=== PATIENT | female | born 1995 | race American Indian/Alaskan Native ===

== ENCOUNTER 2017-05-11 13:15 | Emergency (ER) | payer SELFPAY ==
[2017-05-11] MEDS ORDERED: MOTRIN PO ONE (19:47)
--- NOTE | 2017-05-11 20:26 | Emergency Department Report ---
Upper Respiratory HPI - HPI Chief Complaint: Upper Respiratory Infection Stated Complaint: FLU SYMPTOMS Time Seen by Provider: 05/11/17 19:37 Duration: 3 Days URI Symptoms: Rhinorrhea: Yes, Sore Throat: Yes, Ear Pain: Yes, Cough: Yes, Shortness of Breath: No, Sick Contacts: No, Unable to Take Fluids: No, Urine Output Abnormal: No, Listless Behavior: No - Home Meds and Allergies Home Medications: Previous Rx's Medication Instructions Recorded Last Taken Type ALBUTEROL Inhaler [ProAir HFA 2 puff IH QID PRN #1 inhalation 05/11/17 Unknown Rx Inhaler] Acetaminophen [Acetaminophen 8 650 mg PO QID PRN #60 tablet.er 05/11/17 Unknown Rx Hour] Azithromycin [Zithromax Z-ADAM] 250 mg PO DAILY #6 tablet 05/11/17 Unknown Rx guaiFENesin [Robitussin] 200 mg PO Q4HR #1 bottle 05/11/17 Unknown Rx Allergies/Adverse Reactions: Allergies Allergy/AdvReac Type Severity Reaction Status Date / Time No Known Allergies Allergy Unverified 05/11/17 14:29 ED Review of Systems ROS: Stated complaint: FLU SYMPTOMS Other details as noted in HPI Constitutional: chills, fever, malaise Eyes: denies: eye pain, eye discharge, vision change ENT: ear pain, throat pain, congestion Respiratory: cough, wheezing Cardiovascular: denies: chest pain, palpitations Endocrine: no symptoms reported Gastrointestinal: nausea, vomiting. denies: diarrhea, constipation, hematemesis , melena, hematochezia Genitourinary: denies: urgency, dysuria, discharge Musculoskeletal: myalgia Skin: denies: rash, lesions Psychiatric: denies: anxiety, depression Hematological/Lymphatic: denies: easy bleeding, easy bruising ED Past Medical Hx - Past Medical History Hx Asthma: Yes (Self Diagnosed) - Surgical History Past Surgical History?: No - Social History Smoking Status: Never Smoker Substance Use Type: None - Medications Home Medications: Home Medications Medication Instructions Recorded Confirmed Last Taken Type ALBUTEROL Inhaler [ProAir HFA 2 puff IH QID PRN #1 inhalation 05/11/17 Unknown Rx Inhaler] Acetaminophen [Acetaminophen 8 650 mg PO QID PRN #60 tablet.er 05/11/17 Unknown Rx Hour] Azithromycin [Zithromax Z-ADAM] 250 mg PO DAILY #6 tablet 05/11/17 Unknown Rx guaiFENesin [Robitussin] 200 mg PO Q4HR #1 bottle 05/11/17 Unknown Rx ED Bronchiolitis Physical Exam - Exam General: Vital signs noted. No distress. Alert and acting appropriately. HEENT: Yes Pharyngeal Erythema, Yes Rhinorrhea, No Conjuctival Injection, No Dry Mucous Membranes Ear: Right TM Erythema, Neither TM Bulge, Neither EAC Discharge Neck: Yes Adenopathy, No Rigidity Lungs: Yes Wheezes (left upper lobes ), Yes Cough (productive yellow thick ) Heart: Yes Regular, No Murmur Abdomen: Yes Normal Bowel Sounds, No Tenderness, No Peritoneal Signs Skin: No Rash, No Eczema Neurologic: Alert and oriented, no deficits. Musculoskeletal: Unremarkable. ED Physical Exam - General Limitations: No Limitations General appearance: alert, in no apparent distress - Head Head exam: Present: atraumatic - Eye Eye exam: Present: normal appearance, PERRL, EOMI Pupils: Present: normal accommodation - ENT ENT exam: Present: mucous membranes moist - Expanded ENT Exam Expanded TM/Canal exam: Erythema: Right TM, Canal Tenderness: Right TM Mouth exam: Present: tongue normal. Absent: trismus, tongue elevation Throat exam: Positive: tonsillar erythema. Negative: tonsillomegaly, tonsillar exudate - Neck Neck exam: Present: normal inspection, full ROM. Absent: tenderness, lymphadenopathy, thyromegaly - Respiratory Respiratory exam: Present: normal lung sounds bilaterally, wheezes (mild exp ). Absent: respiratory distress, stridor, chest wall tenderness - Cardiovascular Cardiovascular Exam: Present: tachycardia (mild tachycardia 102), normal heart sounds - GI/Abdominal GI/Abdominal exam: Present: soft, normal bowel sounds. Absent: distended, tenderness, guarding, rebound, rigid, organomegaly, mass, bruit, hernia - Rectal Rectal exam: Present: deferred - Extremities Exam Extremities exam: Present: normal inspection - Back Exam Back exam: Present: normal inspection - Neurological Exam Neurological exam: Present: alert, oriented X3 - Psychiatric Psychiatric exam: Present: normal affect, normal mood - Skin Skin exam: Present: warm, dry, intact, normal color. Absent: rash ED Course Vital Signs 05/11/17 14:25 Temperature 99.6 F Pulse Rate 102 H Respiratory 22 Rate Blood Pressure 118/76 O2 Sat by Pulse 100 Oximetry ED Medical Decision Making - Lab Data Result diagrams: 05/11/17 19:55 05/11/17 19:55 - Medical Decision Making pt is a 22 y/o aaf with nmh who present for cough fever chills malaise and noc wheezing x 3 days cough productive yellow thick , fever 101 f oral subjective prior to arrival, pt endorse intermittent nausea and vomiting x 1 episode result mucus clear thick, pt denies dizziness no syncope LMP 12/20/2016, s/p 04/15/2017 follow up with [facility] [employer] no complications with same, there is no abdominal pain no vaginal bleeding no vaginal discharge or pain , exam: TMs right erythema , nose: bilat turbinater erythema clear post nasal drip, pharnx: milder erythema no lesion no exudate no tonislar abscess no stridor lungs: mild exp wheezes bilat upper lobes, labs noted pos: hcg as per date this normal finding, pt has follow up with bobtailer, will see again in 1 week , wbc: 12.1, cmp: note, cxr: no opacities no infiltrates , pt for nS 1liter and ibuprofen 800 mg po x 1 ed pt advises symptoms are now improved , tolerating po intake, plan: tx for bronchitis : azithromycin, robitussin, tylenol, albuterol inhaler prn, pt will follow up with pcp as directed pt verbalized agreement and understanding with discharge plan. Critical care attestation.: If time is entered above; I have spent that time in minutes in the direct care of this critically ill patient, excluding procedure time. ED Disposition Clinical Impression: Bronchitis Disposition: DC-01 TO HOME OR SELFCARE Is pt being admited?: No Does the pt Need Aspirin: No Condition: Good Instructions: Chronic Bronchitis (ED) Prescriptions: Acetaminophen [Acetaminophen 8 Hour] 650 mg PO QID PRN #60 tablet.er PRN Reason: pain / fever ALBUTEROL Inhaler [ProAir HFA Inhaler] 2 puff IH QID PRN #1 inhalation PRN Reason: Shortness Of Breath Azithromycin [Zithromax Z-ADAM] 250 mg PO DAILY #6 tablet guaiFENesin [Robitussin] 200 mg PO Q4HR #1 bottle Referrals: PRIMARY CARE, [Primary Care Provider] - 3-5 Days Forms: Work/School Release Form(ED) Time of Disposition: 21:35
[2017-05-11 20:37] LABS: Basophils % (Auto) 0.5 % (0.0-1.8); Eosinophils % (Auto) 0.2 % (0.0-4.3); Hematocrit 37.1 % (30.3-42.9); Hemoglobin 11.8 gm/dl (10.1-14.3); Mean Corpuscular HGB Conc 32 % (30-34); Mean Corpuscular Hemoglobin 26 pg (28-32); Mean Corpuscular Volume 82 fl (79-97); Platelet Count 196 K/mm3 (140-440); Red Blood Count 4.53 M/mm3 (3.65-5.03); Red Cell Distribution Width 15.4 % (13.2-15.2); White Blood Count 12.2 K/mm3 (4.5-11.0)
[2017-05-11 20:45] LABS: Alanine Aminotransferase 9 units/L (7-56); Albumin 3.9 g/dL (3.9-5); Albumin/Globulin Ratio 1.3 %; Alkaline Phosphatase 52 units/L (35-129); Anion Gap 22 mmol/L; BUN/Creatinine Ratio 8.57; Blood Urea Nitrogen 6 mg/dL (7-17); Calcium 8.9 mg/dL (8.4-10.2); Carbon Dioxide 19 mmol/L (22-30); Chloride 95.6 mmol/L (98-107); Glucose 100 mg/dL (65-100); Potassium 3.3 mmol/L (3.6-5.0); Sodium 133 mmol/L (137-145)
[2017-05-11 21:14] LABS: Bacteria,Urine 2+ /HPF (Negative); Bilirubin,Urine NEG (Negative); Blood,Urine SM (Negative); Ketones,Urine 20 mg/dL (Negative); Leukocyte Esterase,Urine LG (Negative); Mucus,Urine FEW /HPF; Nitrite,Urine NEG (Negative)
[2017-05-11 21:51] VITALS: BP 131/61
--- NOTE | 2017-05-12 09:38 | XRay Report ---
ROUTINE CHEST, TWO VIEWS: HISTORY: Cough, fever. The trachea, heart, mediastinal contour, lung bernal and bony thorax are unremarkable. IMPRESSION: Unremarkable chest x-ray.
== END 2017-05-11 21:50 | disposition home or self-care (01) ==
LOC: ED 13:15
DX: J40 Bronchitis, not specified as acute or chronic (principal); J45.909 Unspecified asthma, uncomplicated
CPT/HCPCS: 36415; 71020; 80053; 81001; 81025; 85025

== ENCOUNTER 2018-02-17 16:39 | Emergency (ER) | payer SELFPAY ==
[2018-02-17 16:48] VITALS: BP 137/88
--- NOTE | 2018-02-17 17:31 | Emergency Department Report ---
HPI - General Chief Complaint: Extremity Injury, Lower Time Seen by Provider: 02/17/18 16:58 - HPI HPI: 23-year-old female presents to the emergency department with a complaint of left great toe pain and some pain to the foot around the great toe that has been going on for the past 3-4 weeks since the patient dropped a box full of cans onto her foot. She is able to ambulate and bear weight but has some pain with doing so. She has tried some [id number] medications for her discomfort without much relief. She denies any past medical history. She has not seen a primary care physician or oncology admin for her symptoms prior to presentation. ED Past Medical Hx - Past Medical History Hx Asthma: Yes (Self Diagnosed) - Social History Smoking Status: Never Smoker Substance Use Type: None - Medications Home Medications: Home Medications Medication Instructions Recorded Confirmed Last Taken Type ALBUTEROL Inhaler [ProAir HFA 2 puff IH QID PRN #1 inhalation 05/11/17 Unknown Rx Inhaler] Acetaminophen [Acetaminophen 8 650 mg PO QID PRN #60 tablet.er 05/11/17 Unknown Rx Hour] Azithromycin [Zithromax Z-ADAM] 250 mg PO DAILY #6 tablet 05/11/17 Unknown Rx guaiFENesin [Robitussin] 200 mg PO Q4HR #1 bottle 05/11/17 Unknown Rx traMADol [Ultram 50 MG tab] 50 mg PO Q8H PRN #8 tablet 02/17/18 Unknown Rx ED Review of Systems ROS: Stated complaint: LEFT FOOT PAIN Other details as noted in HPI Comment: All other systems reviewed and negative Constitutional: denies: chills, fever Eyes: denies: eye pain, eye discharge, vision change ENT: denies: ear pain, throat pain Respiratory: denies: cough, shortness of breath, wheezing Cardiovascular: denies: chest pain, palpitations Gastrointestinal: denies: abdominal pain, nausea, diarrhea Genitourinary: denies: urgency, dysuria, discharge Musculoskeletal: arthralgia. denies: back pain Skin: denies: rash, lesions Neurological: denies: headache, weakness, paresthesias Physical Exam - Physical Exam Vital Signs: Vital Signs 02/17/18 16:44 Temperature 98.3 F Pulse Rate 71 Respiratory 18 Rate Blood Pressure 137/88 O2 Sat by Pulse 100 Oximetry Physical Exam: GENERAL: The patient is well-developed well-nourished. HENT: Normocephalic. Atraumatic. Patient has moist mucous membranes. EYES: Extraocular motions are intact. NECK: Supple. Trachea is midline. CHEST/LUNGS: Clear to auscultation. There is no respiratory distress noted. HEART/CARDIOVASCULAR: Regular. There is no tachycardia. There is no murmur. ABDOMEN: There is no abdominal distention. SKIN: Skin is warm and dry. NEURO: The patient is awake, alert, and oriented. The patient is cooperative. The patient has no focal neurologic deficits. The patient has normal speech. MUSCULOSKELETAL: Mild tenderness to palpation to the base of the left great toe. There is no evidence of acute injury. Cap refill less than 2 seconds and dorsalis pedis pulses +2 over 4 to the affected left foot. ED Course Vital Signs 02/17/18 16:44 Temperature 98.3 F Pulse Rate 71 Respiratory 18 Rate Blood Pressure 137/88 O2 Sat by Pulse 100 Oximetry ED Medical Decision Making - Radiology Data Radiology results: image reviewed interpreted by me: X-ray of the left foot does not show any obvious fracture, dislocation or any other acute process. - Medical Decision Making Patient has left toe and foot pain about 2-3 weeks after dropping a box on her foot. X-ray does not show any fracture, dislocation or any acute process. On physical exam she is neurovascularly intact without any obvious deformity or signs of trauma at this point. She was seen ambulatory without any instability. She was given a small amount of pain medication and a referral for podiatry. She was encouraged to return to the emergency Department with any worsening of her symptoms or any acute distress. - Differential Diagnosis fracture, contusion, sprain, strain Critical Care Time: No Critical care attestation.: If time is entered above; I have spent that time in minutes in the direct care of this critically ill patient, excluding procedure time. ED Disposition Clinical Impression: Left foot pain Disposition: DC-01 TO HOME OR SELFCARE Is pt being admited?: No Condition: Stable Instructions: Arthralgia (ED) Additional Instructions: Please follow up with a oncology admin or orthopedist in the next few days. Return to the emergency Department with any worsening of your symptoms or any acute distress. You have been prescribed a medication that is sedating and therefore should not be taken prior to driving, working, and responsible for children and in no way should be mixed with alcohol of any quantity. Prescriptions: traMADol [Ultram 50 MG tab] 50 mg PO Q8H PRN #8 tablet PRN Reason: Pain Referrals: SARI PICKERING MD [Staff Physician] - 3-5 Days MAMIE EDEN DPM [Staff Physician] - 3-5 Days Time of Disposition: 17:56
--- NOTE | 2018-02-18 14:31 | XRay Report ---
FINAL REPORT PROCEDURE: Left foot. TECHNIQUE: AP and lateral views. HISTORY: Pain, bruising. COMPARISON: No prior studies are available for comparison. FINDINGS: The bones appear intact without fracture or dislocation. The joint spaces appear normal. The soft tissues are unremarkable. IMPRESSION: Normal study.
== END 2018-02-17 18:01 | disposition home or self-care (01) ==
LOC: ED 16:39
DX: M79.672 Pain in left foot (principal); J45.909 Unspecified asthma, uncomplicated; Z91.09 Other allergy status, other than to drugs and biological substances
CPT/HCPCS: 99283

== ENCOUNTER 2018-03-03 10:36 | Emergency (ER) | payer SELFPAY ==
[2018-03-03 10:42] VITALS: BP 123/46
[2018-03-03] MEDS ORDERED: MOTRIN PO ONE (11:12)
[2018-03-03] MEDS ORDERED: BOOSTRIX IM ONE (11:12)
--- NOTE | 2018-03-03 11:49 | Emergency Department Report ---
ED Laceration HPI - HPI Chief Complaint: Wound/Laceration Stated Complaint: CUT ON RIGHT TOE Time Seen by Provider: 03/03/18 11:12 Occurred When: Yesterday Location: Lower Extremity Severity: mild Tetanus Status: Not up to Date Laceration Symptoms: Yes Pain, No Foreign Body Sensation, No Numbness, No Weakness Other History: Patient is a 23-year-old female nontoxic, well nourished in appearance, no acute signs of distress presents to the ED with c/o of right great toe abrasion. Patient stated that she was walking down briskly with flip- flops and tripped and caused laceration against the escalator.. Patient denies any direct trauma. Patient denies any fever, chills, nausea, vomiting, chest pain, short of breath, headache, numbness or tingling. Patient states she is not up-to-date with tetanus. Patient stated this occurred around 10 PM last night. Patient denies any drug allergies or significant past medical history. ED Review of Systems ROS: Stated complaint: CUT ON RIGHT TOE Other details as noted in HPI Constitutional: denies: chills, fever Eyes: denies: eye pain, eye discharge, vision change ENT: denies: ear pain, throat pain Respiratory: denies: cough, shortness of breath, wheezing Cardiovascular: denies: chest pain, palpitations Endocrine: no symptoms reported Gastrointestinal: denies: abdominal pain, nausea, diarrhea Genitourinary: denies: urgency, dysuria, discharge Musculoskeletal: denies: back pain, joint swelling, arthralgia Skin: denies: rash, lesions Neurological: denies: headache, weakness, paresthesias Psychiatric: denies: anxiety, depression Hematological/Lymphatic: denies: easy bleeding, easy bruising ED Past Medical Hx - Past Medical History Hx Asthma: Yes (Self Diagnosed) - Surgical History Past Surgical History?: No - Social History Smoking Status: Never Smoker Substance Use Type: None - Medications Home Medications: Home Medications Medication Instructions Recorded Confirmed Last Taken Type ALBUTEROL Inhaler [ProAir HFA 2 puff IH QID PRN #1 inhalation 05/11/17 Unknown Rx Inhaler] Acetaminophen [Acetaminophen 8 650 mg PO QID PRN #60 tablet.er 05/11/17 Unknown Rx Hour] Azithromycin [Zithromax Z-ADAM] 250 mg PO DAILY #6 tablet 05/11/17 Unknown Rx guaiFENesin [Robitussin] 200 mg PO Q4HR #1 bottle 05/11/17 Unknown Rx traMADol [Ultram 50 MG tab] 50 mg PO Q8H PRN #8 tablet 02/17/18 Unknown Rx Ibuprofen [Motrin] 600 mg PO Q8H PRN #30 tablet 03/03/18 Unknown Rx Sulfamethoxazole/Trimethoprim 1 each PO BID #14 tablet 03/03/18 Unknown Rx [Bactrim DS TAB] Laceration Physical Exam - Exam General: Vital signs noted. No distress. Alert and acting appropriately. GENERAL: The patient is a well-developed, well-nourished in no apparent distress. Patient is alert and acting appropriately for age. Alert and oriented 3, no apparent distress, normal gait, atraumatic. HEENT: Head is normocephalic and atraumatic. PERRL, Extraocular muscles are intact. Pupils are equal, round, and reactive to light and accommodation. Nares appeared normal. Mouth is well hydrated and without lesions. Mucous membranes are moist. Posterior pharynx clear of any exudate or lesions. Mouth is well hydrated and without lesions. Tonsils not erythematous or swollen. Uvula midline. Tongue elevated. Mucous members are moist. Posterior pharynx clear, no exudate or lesions. Patent airways. NECK: Supple. No carotid bruits. No lymphadenopathy or thyromegaly.nontender. No meningitic signs are noted. LUNGS: Clear to auscultation. Non labor breathing. No intercostal retractions. Symmetrical with respiration, no wheezing, no rales, or crackles. HEART: Regular rate and rhythm without murmur, rubs or gallops. No reproducible. S1, S2 present, regular rate and rhythm without murmur, no rubs, no gallops. ABDOMEN: Soft, nontender, and nondistended. Positive bowel sounds. No hepatosplenomegaly was noted. No guarding or rebound tenderness, negative epigastric bruit. Negative psoas sign, negative tyler sign, negative McBurneys sign EXTREMITIES: Without any cyanosis, clubbing, rash, lesions or edema. Peripheral pulses intact. Capillary refill less than 2 seconds. Full range of motion bilaterally. NEUROLOGIC: Cranial nerves II through XII are grossly intact. Alert and oriented x 3. Normal gait. Symmetrical strength and sensation. Reflexes 2+ throughout. Cerebellar testing normal. GCS score of 15. PSYCHIATRIC: Normal affect with no suicidal or homicidal ideations. Skin: One centimeter abrasion to right great toe. The laceration. No swelling. No muscle drainage. Normal range of motion. Neurovascular intact. Laceration Location: Upper Extremity Laceration Exam: Yes Normal Distal CMS, No Foreign Body, No Exposed Tendon, Vessel, or Nerve, No Tendon Injury ED Course Vital Signs 03/03/18 10:38 Temperature 97.7 F Pulse Rate 68 Respiratory 16 Rate Blood Pressure 123/46 O2 Sat by Pulse 100 Oximetry - Reevaluation(s) Reevaluation #1: 03/03/18 11:47 Patient is speaking in full sentences with no signs of distress noted. ED Medical Decision Making - Medical Decision Making This is a 23-year-old female that presents with an abrasion. Patient stable was examined by me. Patient did receive a tetanus booster in the ED. There has been cleaned with soap and water. A sterile dressing has been applied. Patient is discharged with Bactrim. She was instructed to Follow-up with a primary care doctor in 3-5 days or if symptoms worsen and continue return to emergency room as soon as possible. At time of discharge, the patient does not seem toxic or ill in appearance. No acute signs of distress noted. Patient agrees to discharge treatment plan of care. No further questions noted by the patient. Critical care attestation.: If time is entered above; I have spent that time in minutes in the direct care of this critically ill patient, excluding procedure time. ED Disposition Clinical Impression: Abrasion Disposition: DC-01 TO HOME OR SELFCARE Is pt being admited?: No Does the pt Need Aspirin: No Condition: Stable Instructions: Abrasion (ED), Sulfamethoxazole/Trimethoprim (By mouth), Ibuprofen (By mouth) Additional Instructions: Follow-up with a primary care doctor in 3-5 days or if symptoms worsen and continue return to emergency room as soon as possible. Prescriptions: Ibuprofen [Motrin] 600 mg PO Q8H PRN #30 tablet PRN Reason: Pain Sulfamethoxazole/Trimethoprim [Bactrim DS TAB] 1 each PO BID #14 tablet Referrals: PRIMARY CARE, [Primary Care Provider] - 3-5 Days ISAÍAS JEAN-BAPTISTE MD [Staff Physician] - 3-5 Days [facility] [Outside] - 3-5 Days [facility] [Outside] - 3-5 Days Forms: Work/School Release Form(ED)
== END 2018-03-03 12:07 | disposition home or self-care (01) ==
LOC: ED 10:36
DX: S90.411A Abrasion, right great toe, initial encounter (principal); J45.909 Unspecified asthma, uncomplicated; Z91.048 Other nonmedicinal substance allergy status; W22.8XXA Striking against or struck by other objects, initial encounter; Y93.01 Activity, walking, marching and hiking; Y92.89 Other specified places as the place of occurrence of the external cause; Y99.8 Other external cause status
CPT/HCPCS: 90471; 90715

== ENCOUNTER 2018-03-04 22:35 | Emergency (ER) | payer SELFPAY ==
[2018-03-04 22:45] VITALS: BP 123/75
== END 2018-03-05 01:50 | disposition left against medical advice (07) ==
LOC: ED 22:35
DX: M79.676 Pain in unspecified toe(s) (principal); Z53.21 Procedure and treatment not carried out due to patient leaving prior to being seen by health care provider

== ENCOUNTER 2020-08-03 16:36 | Emergency (ER) | payer SELFPAY ==
[2020-08-03 16:54] VITALS: BP 125/87
--- NOTE | 2020-08-03 16:55 | Event Note ---
ED Screening Note Date of service: 08/03/20 Time: 16:54 ED Screening Note: Patient is 7 weeks and complains of vaginal bleeding and intermittent cramping pain Not currently following with an [employer] per patient This initial assessment/diagnostic orders/clinical plan/treatment(s) is/are subject to change based on patients health status, clinical progression and re- assessment by fellow clinical providers in the ED. Further treatment and workup at subsequent clinical providers discretion. Patient/guardian urged not to elope from the ED as their condition may be serious if not clinically assessed and managed. Initial orders include: Labs Ultrasound
[2020-08-03 17:40] LABS: Basophils # (Auto) 0.1 K/mm3 (0.0-0.1); Eosinophils # (Auto) 0.1 K/mm3 (0.0-0.4); Eosinophils % (Auto) 0.5 % (0.0-4.3); Hematocrit 35.2 % (30.3-42.9); Hemoglobin 12.2 gm/dl (10.1-14.3); Lymphocytes # (Auto) 1.9 K/mm3 (1.2-5.4); Lymphocytes % (Auto) 19.2 % (13.4-35.0); Mean Corpuscular HGB Conc 35 % (30-34); Mean Corpuscular Volume 92 fl (79-97); Monocytes % (Auto) 10.6 % (0.0-7.3); Platelet Count 270 K/mm3 (140-440); Red Blood Count 3.85 M/mm3 (3.65-5.03); Red Cell Distribution Width 13.9 % (13.2-15.2)
[2020-08-03 18:01] LABS: Bacteria,Urine 1+ /HPF (Negative); Bilirubin,Urine NEG (Negative); Blood,Urine SM (Negative); Color,Urine Yellow (Yellow); Mucus,Urine 3+ /HPF
[2020-08-03 18:03] LABS: Alanine Aminotransferase 35 units/L (7-56); Albumin 4.3 g/dL (3.9-5); Blood Urea Nitrogen 7 mg/dL (7-17); Calcium 9.4 mg/dL (8.4-10.2); Hemolysis Index 0
[2020-08-03 18:29] LABS: BUN/Creatinine Ratio 12
--- NOTE | 2020-08-03 18:47 | Ultrasound Report ---
US OB <= 14 weeks fetus INDICATION / CLINICAL INFORMATION: Vaginal bleeding. COMPARISON: None available. FINDINGS: Intrauterine is present of approximately 8 weeks 1 day gestational age. Gestational sac yolette meter is 36 mm and crown-rump length is 12 mm. heart rate is 166. Both ovaries are present. A 1 .7 cm complex cyst is seen in the right ovary. The left ovary is heterogeneous in appearance. IMPRESSION: Single live fetus of approximately 8 weeks 1 day gestational age in the uterus with a heart rat e of 166. A 1.7 cm complex cyst is seen in the right ovary in the left ovary is heterogeneous in appe arance Signer Name: Ben Badillo MD FACR Signed: 08/03/2020 6:46 PM Workstation Name: [id number]
--- NOTE | 2020-08-03 19:03 | Emergency Department Report ---
ED HPI - General Chief complaint: Vaginal Bleeding Stated complaint: 7 WEEKS PREG/BLEEDING Time Seen by Provider: 08/03/20 16:53 Source: patient Mode of arrival: Ambulatory Limitations: No Limitations - History of Present Illness Initial comments: Patient is 7 weeks and complains of vaginal bleeding and intermittent cramping pain x today. She denies currently following with an HEDIS COORDINATOR. She also denies any dysuria/hematuria, vaginal discharge, nausea/vomiting/diarrhea, or fever/chills/sweats. No current abdominal pain per patient. - Related Data Previous Rx's Medication Instructions Recorded Last Taken Type Acetaminophen [Acetaminophen 8 650 mg PO QID PRN #60 tablet.er 05/11/17 Unknown Rx Hour] Albuterol Mdi (or & Nicu Only) 2 puff IH QID PRN #1 inhalation 05/11/17 Unknown Rx [ProAir HFA Inhaler] Azithromycin [Zithromax Z-ADAM] 250 mg PO DAILY #6 tablet 05/11/17 Unknown Rx guaiFENesin [Robitussin] 200 mg PO Q4HR #1 bottle 05/11/17 Unknown Rx traMADoL [Ultram 50 MG tab] 50 mg PO Q8H PRN #8 tablet 02/17/18 Unknown Rx Ibuprofen [Motrin] 600 mg PO Q8H PRN #30 tablet 03/03/18 Unknown Rx Sulfamethoxazole/Trimethoprim 1 each PO BID #14 tablet 03/03/18 Unknown Rx [Bactrim DS TAB] Allergies Allergy/AdvReac Type Severity Reaction Status Date / Time nickel Allergy Unknown Verified 02/17/18 16:44 ED Review of Systems ROS: Stated complaint: 7 WEEKS PREG/BLEEDING Other details as noted in HPI Constitutional: denies: chills, diaphoresis, fever, malaise, weakness Respiratory: denies: cough, shortness of breath Cardiovascular: denies: chest pain Endocrine: denies: excessive sweating Gastrointestinal: denies: nausea, vomiting, diarrhea Genitourinary: denies: urgency, dysuria, frequency Musculoskeletal: denies: back pain Hematological/Lymphatic: denies: easy bleeding, easy bruising ED Past Medical Hx - Past Medical History Hx Asthma: Yes (Self Diagnosed) - Social History Smoking Status: Unknown if ever smoked Substance Use Type: None - Medications Home Medications: Home Medications Medication Instructions Recorded Confirmed Last Taken Type Acetaminophen [Acetaminophen 8 650 mg PO QID PRN #60 tablet.er 05/11/17 Unknown Rx Hour] Albuterol Mdi (or & Nicu Only) 2 puff IH QID PRN #1 inhalation 05/11/17 Unknown Rx [ProAir HFA Inhaler] Azithromycin [Zithromax Z-ADAM] 250 mg PO DAILY #6 tablet 05/11/17 Unknown Rx guaiFENesin [Robitussin] 200 mg PO Q4HR #1 bottle 05/11/17 Unknown Rx traMADoL [Ultram 50 MG tab] 50 mg PO Q8H PRN #8 tablet 02/17/18 Unknown Rx Ibuprofen [Motrin] 600 mg PO Q8H PRN #30 tablet 03/03/18 Unknown Rx Sulfamethoxazole/Trimethoprim 1 each PO BID #14 tablet 03/03/18 Unknown Rx [Bactrim DS TAB] ED Physical Exam - General Limitations: No Limitations General appearance: alert, in no apparent distress - Head Head exam: Present: atraumatic, normocephalic - Eye Eye exam: Present: normal appearance. Absent: scleral icterus - Respiratory Respiratory exam: Absent: respiratory distress - Cardiovascular Cardiovascular Exam: Present: regular rate - GI/Abdominal GI/Abdominal exam: Present: soft, normal bowel sounds. Absent: distended, te nderness, guarding, rebound, rigid - Back Exam Back exam: Present: full ROM - Neurological Exam Neurological exam: Present: alert, oriented X3 - Psychiatric Psychiatric exam: Present: normal affect, normal mood - Skin Skin exam: Present: warm, dry, intact, normal color. Absent: rash ED Course Vital Signs 08/03/20 16:53 Temperature 98.0 F Pulse Rate 73 Respiratory 16 Rate Blood Pressure 125/87 [Right] O2 Sat by Pulse 98 Oximetry ED Medical Decision Making - Lab Data Result diagrams: 08/03/20 16:57 08/03/20 16:57 Lab Results 08/03/20 08/03/20 08/03/20 Range/Units 16:57 16:57 16:57 WBC 9.7 (4.5-11.0) K/mm3 RBC 3.85 (3.65-5.03) M/mm3 Hgb 12.2 (10.1-14.3) gm/dl Hct 35.2 (30.3-42.9) % MCV 92 (79-97) fl MCH 32 (28-32) pg MCHC 35 H (30-34) % RDW 13.9 (13.2-15.2) % Plt Count 270 (140-440) K/mm3 Lymph % (Auto) 19.2 (13.4-35.0) % [place] % (Auto) 10.6 H (0.0-7.3) % Eos % (Auto) 0.5 (0.0-4.3) % Baso % (Auto) 1.0 (0.0-1.8) % Lymph # (Auto) 1.9 (1.2-5.4) K/mm3 [place] # (Auto) 1.0 H (0.0-0.8) K/mm3 Eos # (Auto) 0.1 (0.0-0.4) K/mm3 Baso # (Auto) 0.1 (0.0-0.1) K/mm3 Seg Neutrophils % 68.7 (40.0-70.0) % Seg Neutrophils # 6.6 (1.8-7.7) K/mm3 Sodium 134 L (137-145) mmol/L Potassium 3.0 L (3.6-5.0) mmol/L Chloride 98.7 (98-107) mmol/L Carbon Dioxide 24 (22-30) mmol/L Anion Gap 14 mmol/L BUN 7 (7-17) mg/dL Creatinine 0.6 (0.6-1.2) mg/dL Estimated GFR > 60 ml/min BUN/Creatinine Ratio 12 % Glucose 100 (65-100) mg/dL Calcium 9.4 (8.4-10.2) mg/dL Total Bilirubin 0.40 (0.1-1.2) mg/dL AST 24 (5-40) units/L ALT 35 (7-56) units/L Alkaline Phosphatase 42 (35-129) units/L Total Protein 7.3 (6.3-8.2) g/dL Albumin 4.3 (3.9-5) g/dL Albumin/Globulin Ratio 1.4 % HCG, Quant [id number] H (0-4) mIU/mL Urine Color (Yellow) Urine Turbidity (Clear) Urine pH (5.0-7.0) Ur Specific [place] (1.003-1.030) Urine Protein (Negative) mg/dL Urine Glucose (UA) (Negative) mg/dL Urine Ketones (Negative) mg/dL Urine Blood (Negative) Urine Nitrite (Negative) Urine Bilirubin (Negative) Urine Urobilinogen (<2.0) mg/dL Ur Leukocyte Esterase (Negative) Urine WBC (Auto) (0.0-6.0) /HPF Urine RBC (Auto) (0.0-6.0) /HPF U Epithel Cells (Auto) (0-13.0) /HPF Urine Bacteria (Auto) (Negative) /HPF Urine Mucus /HPF Blood Type 08/03/20 08/03/20 Range/Units 16:57 17:38 WBC (4.5-11.0) K/mm3 RBC (3.65-5.03) M/mm3 Hgb (10.1-14.3) gm/dl Hct (30.3-42.9) % MCV (79-97) fl MCH (28-32) pg MCHC (30-34) % RDW (13.2-15.2) % Plt Count (140-440) K/mm3 Lymph % (Auto) (13.4-35.0) % [place] % (Auto) (0.0-7.3) % Eos % (Auto) (0.0-4.3) % Baso % (Auto) (0.0-1.8) % Lymph # (Auto) (1.2-5.4) K/mm3 [place] # (Auto) (0.0-0.8) K/mm3 Eos # (Auto) (0.0-0.4) K/mm3 Baso # (Auto) (0.0-0.1) K/mm3 Seg Neutrophils % (40.0-70.0) % Seg Neutrophils # (1.8-7.7) K/mm3 Sodium (137-145) mmol/L Potassium (3.6-5.0) mmol/L Chloride (98-107) mmol/L Carbon Dioxide (22-30) mmol/L Anion Gap mmol/L BUN (7-17) mg/dL Creatinine (0.6-1.2) mg/dL Estimated GFR ml/min BUN/Creatinine Ratio % Glucose (65-100) mg/dL Calcium (8.4-10.2) mg/dL Total Bilirubin (0.1-1.2) mg/dL AST (5-40) units/L ALT (7-56) units/L Alkaline Phosphatase (35-129) units/L Total Protein (6.3-8.2) g/dL Albumin (3.9-5) g/dL Albumin/Globulin Ratio % HCG, Quant (0-4) mIU/mL Urine Color Yellow (Yellow) Urine Turbidity Clear (Clear) Urine pH 6.0 (5.0-7.0) Ur Specific [place] 1.029 (1.003-1.030) Urine Protein 30 mg/dl (Negative) mg/dL Urine Glucose (UA) Neg (Negative) mg/dL Urine Ketones 20 (Negative) mg/dL Urine Blood Sm (Negative) Urine Nitrite Neg (Negative) Urine Bilirubin Neg (Negative) Urine Urobilinogen 4.0 (<2.0) mg/dL Ur Leukocyte Esterase Neg (Negative) Urine WBC (Auto) 2.0 (0.0-6.0) /HPF Urine RBC (Auto) 5.0 (0.0-6.0) /HPF U Epithel Cells (Auto) 14.0 H (0-13.0) /HPF Urine Bacteria (Auto) 1+ (Negative) /HPF Urine Mucus 3+ /HPF Blood Type O POSITIVE - Radiology Data Radiology results: report reviewed US OB <= 14 weeks fetus INDICATION / CLINICAL INFORMATION: Vaginal bleeding. COMPARISON: None available. FINDINGS: Intrauterine is present of approximately 8 weeks 1 day gestational age. Gestational sac diameter is 36 mm and crown-rump length is 12 mm. heart rate is 166. Both ovaries are present. A 1.7 cm complex cyst is seen in the right ovary. The left ovary is heterogeneous in appearance. IMPRESSION: Single live fetus of approximately 8 weeks 1 day gestational age in the uterus with a heart rate of 166. A 1.7 cm complex cyst is seen in the right ovary in the left ovary is heterogeneous in appearance - Medical Decision Making Patient is 7 weeks and complains of vaginal bleeding and intermittent cramping pain x today. She denies currently following with an HEDIS COORDINATOR. She also denies any dysuria/hematuria, vaginal discharge, nausea/vomiting/diarrhea, or fever/chills/sweats. No current abdominal pain per patient. No abdominal tenderness to palpation noted on exam. Beta-hCG level = [id number]. OB ultrasound shows IUP at 8 weeks 1 day and complex right ovarian cyst. Patient's vitals are normal. Discussed ultrasound results and need for follow- up with HEDIS COORDINATOR within 3 days. Referral provided for my HEDIS COORDINATOR. Her vitals are normal, she is well-appearing, she is stable for discharge home. Strict return precautions were discussed in great detail with patient who verbalized understanding. Critical care attestation.: If time is entered above; I have spent that time in minutes in the direct care of this critically ill patient, excluding procedure time. ED Disposition Clinical Impression: Vaginal bleeding in , Complex cyst of right ovary Disposition: DC- TO HOME OR SELFCARE Is pt being admited?: No Condition: Stable Instructions: Threatened Miscarriage, Ovarian Cyst Referrals: [facility] [Provider Group] - 2-3 Days Forms: Work/School Release Form(ED)
== END 2020-08-03 19:45 | disposition home or self-care (01) ==
LOC: ED 16:36
DX: O26.891 Other specified pregnancy related conditions, first trimester (principal); O99.511 Diseases of the respiratory system complicating pregnancy, first trimester; J45.909 Unspecified asthma, uncomplicated; N83.291 Other ovarian cyst, right side; Z79.899 Other long term (current) drug therapy; Z88.8 Allergy status to other drugs, medicaments and biological substances; Z3A.08 8 weeks gestation of pregnancy
CPT/HCPCS: 36415; 76801; 80053; 81001; 84702; 85025; 86900; 86901

== ENCOUNTER 2021-06-27 20:28 | Emergency (ER) | payer MEDICAID, OTHER ==
[2021-06-27 21:15] VITALS: BP 124/82
--- NOTE | 2021-06-27 21:24 | Emergency Department Report ---
ED Eye Problem HPI - General Chief complaint: Dizziness Stated complaint: BLURRIED VISION Time Seen by Provider: 06/27/21 21:23 Source: patient Mode of arrival: Ambulatory Limitations: No Limitations - History of Present Illness Initial comments: 26 yo comes to ER with eye heaviness and sensitivity to light p wearing fake contact lenses to a republican. 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 She denies trauma. No tearing Pt drove self to ER tonight. No headache. No n/v/d. chief complaint: other -: Gradual, days(s) Place: other If Injury: none Eye Symptoms: other Severity: mild Treatments Prior to Arrival: removed contact lens - Related Data Patient Tetanus UTD: Yes Previous Rx's Medication Instructions Recorded Last Taken Type Tobramycin/Dexamethasone [Tobradex 1 drop OP Q6HR #1 bottle 06/27/21 Unknown Rx Eye Drops 0.3/0.1%] Allergies Allergy/AdvReac Type Severity Reaction Status Date / Time nickel Allergy Unknown Verified 02/17/18 16:44 ED Review of Systems ROS: Stated complaint: BLURRIED VISION Other details as noted in HPI Comment: All other systems reviewed and negative ED Past Medical Hx - Past Medical History Previous Medical History?: Yes Hx Asthma: Yes (Self Diagnosed) - Surgical History Past Surgical History?: No - Family History Family history: no significant - Social History Smoking Status: Never Smoker Substance Use Type: Alcohol - Medications Home Medications: Home Medications Medication Instructions Recorded Confirmed Last Taken Type Tobramycin/Dexamethasone [Tobradex 1 drop OP Q6HR #1 bottle 06/27/21 Unknown Rx Eye Drops 0.3/0.1%] ED Physical Exam - General Limitations: No Limitations General appearance: alert, in no apparent distress - Head Head exam: Present: atraumatic, normocephalic - Eye Eye exam: Present: normal appearance, PERRL, EOMI - ENT ENT exam: Present: mucous membranes moist - Neck Neck exam: Present: normal inspection - Respiratory Respiratory exam: Present: normal lung sounds bilaterally. Absent: respiratory distress - Cardiovascular Cardiovascular Exam: Present: regular rate, normal rhythm. Absent: systolic murmur, diastolic murmur, rubs, gallop - GI/Abdominal GI/Abdominal exam: Present: soft, normal bowel sounds - Extremities Exam Extremities exam: Present: normal inspection - Back Exam Back exam: Present: normal inspection - Neurological Exam Neurological exam: Present: alert, oriented X3 - Psychiatric Psychiatric exam: Present: normal affect, normal mood - Skin Skin exam: Present: warm, dry, intact, normal color. Absent: rash ED Course Vital Signs 06/27/21 21:11 Temperature 98.6 F Pulse Rate 75 Respiratory 17 Rate Blood Pressure 124/82 O2 Sat by Pulse 100 Oximetry ED Medical Decision Making - Medical Decision Making Vital Signs 06/27/21 21:11 Temperature 98.6 F Pulse Rate 75 Respiratory 17 Rate Blood Pressure 124/82 O2 Sat by Pulse 100 Oximetry Pt wore fake contact lenses to change her eye color to a republican this weekend. Since then her eyes are irritated and swollen. No tearing. No redness. No pain. No headache. Endorses light sensitivities. Exam WNL Educated on contact lenses- I've instructed her to discard them. Pt dc home with dc plan of care including eye MD follow up and Rx. She verbalizes understanding of plan of care - Differential Diagnosis conjunctivitis Critical care attestation.: If time is entered above; I have spent that time in minutes in the direct care of this critically ill patient, excluding procedure time. ED Disposition Clinical Impression: Conjunctivitis Disposition: 01 HOME / SELF CARE / HOMELESS Is pt being admited?: No Does the pt Need Aspirin: No Condition: Stable Instructions: Bacterial Conjunctivitis, Adult, [id number] Additional Instructions: MEDS ORDERED TODAY WARM COMPRESSES MOTRIN OR TYLENOL FOR PAIN OR FEVER FOLLOW UP WITH EYE DOCTOR IN 48 HOURS IF PAIN PERSISTS REFERRAL BELOW PCP ALSO PROVIDED BELOW THROW CONTACTS AWAY Prescriptions: Tobramycin/Dexamethasone [Tobradex Eye Drops 0.3/0.1%] 1 drop OP Q6HR #1 bottle Referrals: REKHA CH MD [Staff Physician] - 3-5 Days EMIL ALBERTO MD [Staff Physician] - 3-5 Days Forms: Work/School Release Form(ED) Time of Disposition: 21:27
== END 2021-06-27 22:24 | disposition home or self-care (01) ==
LOC: ED 20:28
DX: H10.9 Unspecified conjunctivitis (principal); J45.909 Unspecified asthma, uncomplicated; Z91.048 Other nonmedicinal substance allergy status
CPT/HCPCS: 99282